=== PATIENT | female | born 1980 | race Caucasian/White ===

== ENCOUNTER 2021-01-24 11:16 | Inpatient (IN) | payer MEDICARE, MEDICAID ==
[~2021-01-24] VITALS: Ht 167.6 cm; Wt 51.4 kg
[~2021-01-24 11:16] MED LIST: BENZ1TAB10 PO; OLAN10TA3 PO
[2021-01-24 12:15] LABS: BASOPHILS % (AUTO) 0.5 % (0.0-2.0); EOSINOPHILS % (AUTO) 0 % (1.0-6.0); HEMATOCRIT 41.7 % (36-46); HEMOGLOBIN 13.8 g/dL (12.0-16.0); LYMPHOCYTES # (AUTO) 1.2 K/uL (1.0-4.8); LYMPHOCYTES % (AUTO) 10.9 % (22.0-44.0); MEAN CORPUSCULAR HEMOGLOBIN 30.3 pg (26.0-34.0); MEAN CORPUSCULAR HGB CONC 33.2 G/dL (31.0-37.0); MEAN CORPUSCULAR VOLUME 91 fL (80-100); MONOCYTES # (AUTO) 0.5 K/uL (0.1-1.0); MONOCYTES % (AUTO) 4.6 % (2.0-9.0); NEUTROPHILS # (AUTO) 9.3 K/uL (1.8-7.7); PLATELET COUNT (AUTO) 220 K/uL (150-450); RED BLOOD CELL COUNT(AUTO) 4.58 MIL/uL (4.00-5.20); RED CELL DISTRIBUTION WIDTH 12.7 % (11.5-14.5)
[2021-01-24 12:36] LABS: ANION GAP 11 mmol/L (8-16); CALCIUM, TOTAL 9.8 mg/dL (8.8-10.5); CARBON DIOXIDE 28 mmol/L (22-29); CHLORIDE 106 mmol/L (98-107); CREATININE 0.61 mg/dL (0.60-1.30); GLOMERULAR FILTR. RATE CALC > 60 mL/min (>60); GLUCOSE,RANDOM 109 mg/dL (70-110); POTASSIUM 3.9 mmol/L (3.5-5.1); SODIUM SERUM 145 mmol/L (136-145); UREA NITROGEN, BLOOD 4 mg/dL (7-18)
[2021-01-24 12:42] LABS: ALANINE AMINOTRANSFERASE 14 U/L (12-78); ALBUMIN 3.9 g/dL (3.4-5.0); ALKALINE PHOSPHATASE 54 U/L (46-116); ASPARTATE AMINOTRANSFERASE 14 U/L (15-37); BILIRUBIN,TOTAL 0.4 mg/dL (0.1-1.0); TOTAL PROTEIN, SERUM 7.5 g/dL (6.4-8.2)
[2021-01-24] MEDS ORDERED: LORazepam 2 MG TABLET PO PRN (12:45)
[2021-01-24] MEDS ORDERED: QUEtiapine FUMARATE 100 MG TABLET PO PRN (12:45)
[2021-01-24] MEDS ORDERED: ZOLPIDEM TARTRATE 10 MG TABLET PO PRN (12:45)
[2021-01-24 15:36] LABS: COVID AG,FIA SOURCE NASAL SWAB
[2021-01-24] MEDS ORDERED: OLANZapine 5 MG TABLET PO ONE (15:45)
[2021-01-24 16:04] LABS: AMPHET/METH SCREEN,URINE NEGATIVE (NEGATIVE); BARBITURATE SCREEN, URINE NEGATIVE (NEGATIVE); BENZODIAZEPINES SCREEN,URINE NEGATIVE (NEGATIVE); CANNABINOID SCREEN,URINE POSITIVE (NEGATIVE); COCAINE SCREEN,URINE NEGATIVE (NEGATIVE); METHADONE SCREEN, URINE NEGATIVE (NEGATIVE); OPIATE SCREEN,URINE NEGATIVE (NEGATIVE)
[2021-01-24 16:07] LABS: PHENCYCLIDINE SCREEN,URINE NEGATIVE (NEGATIVE)
[2021-01-24 22:39] VITALS: BP 122/64
[2021-01-24 23:08] VITALS: BP 111/59
[2021-01-24] MEDS ORDERED: INFLUENZA VIRUS VACCINE QVS 2020-21 (6MO+)/PF 60 MCG/0.5 ML SYRINGE IM ONE (23:45)
[2021-01-25 06:01] VITALS: BP 101/62
[2021-01-25 08:26] VITALS: BP 116/66
[2021-01-25] MEDS ORDERED: PETROLATUM,WHITE 28 GM JELLY TP PRN (08:45)
[2021-01-25] MEDS ORDERED: GuaiFENesin/D-METHORPHAN [SUGAR-FREE] 200-20MG/10 ML SYRUP UDCUP PO PRN (08:45)
[2021-01-25] MEDS ORDERED: DOCUSATE SODIUM 100 MG CAPSULE PO PRN (08:45)
[2021-01-25] MEDS ORDERED: CloNIDine HCL 0.1 MG TABLET PO PRN (08:45)
[2021-01-25] MEDS ORDERED: NICOTINE 14 MG/24 HOUR PATCH TD PRN (08:45)
[2021-01-25] MEDS ORDERED: LOPERAMIDE HCL 2 MG CAPSULE PO PRN (08:45)
[2021-01-25] MEDS ORDERED: MAG HYDROX/AL HYDROX/SIMETH ES 30 ML SUSPENSION UDCUP PO PRN (08:45)
[2021-01-25] MEDS ORDERED: ONDANSETRON HCL 4 MG TABLET PO PRN (08:45)
[2021-01-25] MEDS ORDERED: ALBUTEROL SULFATE HFA 90 MCG/PUFF 8 GM INHALER IH PRN (08:45)
[2021-01-25] MEDS ORDERED: ACETAMINOPHEN 325 MG TABLET PO PRN (08:45)
[2021-01-25] MEDS ORDERED: MAGNESIUM HYDROXIDE SUSPENSION 30 ML UDCUP PO PRN (08:45)
[2021-01-25] MEDS ORDERED: IBUPROFEN 400 MG TABLET PO PRN (08:45)
[2021-01-25] MEDS: ESCITALOPRAM OXALATE 10 MG TABLET PO SCH (11:44)
[2021-01-25 16:08] VITALS: BP 114/67
[2021-01-25] MEDS: OLANZapine 7.5 MG TABLET PO SCH (20:29)
[2021-01-26 01:58] VITALS: BP 140/90
[2021-01-26 08:13] VITALS: BP 121/70
[2021-01-26 08:14] LABS: CHOL/HDL RATIO 2.2 (3.9-5.7)
[2021-01-26 08:29] LABS: FREE T4 (FREE THYROXINE) 1.31 ng/dL (0.76-1.46); THYROID STIMULATING HORMONE 0.64 uIU/mL (0.36-3.74)
[2021-01-26] MEDS: ESCITALOPRAM OXALATE 10 MG TABLET PO SCH (09:05)
[2021-01-26 16:06] VITALS: BP 108/64
[2021-01-26] MEDS: OLANZapine 7.5 MG TABLET PO SCH (20:28)
[2021-01-27 02:54] VITALS: BP 140/80
[2021-01-27 08:37] VITALS: BP 111/71
[2021-01-27] MEDS: ESCITALOPRAM OXALATE 10 MG TABLET PO SCH (08:55)
[2021-01-27 16:12] VITALS: BP 102/70
[2021-01-27] MEDS: OLANZapine 7.5 MG TABLET PO SCH (20:21)
[2021-01-28 00:43] VITALS: BP 113/65
[2021-01-28 08:06] VITALS: BP 115/67
[2021-01-28] MEDS: ESCITALOPRAM OXALATE 10 MG TABLET PO SCH (08:42)
[2021-01-28 16:16] VITALS: BP 119/72
[2021-01-28] MEDS: OLANZapine 7.5 MG TABLET PO SCH (20:33)
[2021-01-29 06:11] VITALS: BP 121/86
[2021-01-29 08:16] VITALS: BP 122/84
[2021-01-29] MEDS: ESCITALOPRAM OXALATE 10 MG TABLET PO SCH (08:31)
[2021-01-29 16:07] VITALS: BP 121/81
[2021-01-29] MEDS: OLANZapine 10 MG TABLET PO SCH (20:21)
[2021-01-30 06:15] VITALS: BP 101/62
[2021-01-30 08:49] VITALS: BP 116/65
[2021-01-30 08:52] LABS: COVID AG,FIA SOURCE NASOPHARYNGEAL
[2021-01-30] MEDS: ESCITALOPRAM OXALATE 20 MG TABLET PO SCH (09:03)
[2021-01-30 16:17] VITALS: BP 116/78
[2021-01-30] MEDS: OLANZapine 10 MG TABLET PO SCH (20:32)
[2021-01-31 00:15] VITALS: BP 110/65
[2021-01-31 08:08] VITALS: BP 132/58
[2021-01-31] MEDS: ESCITALOPRAM OXALATE 20 MG TABLET PO SCH (08:24)
[2021-01-31 16:13] VITALS: BP 108/64
[2021-01-31] MEDS: OLANZapine 10 MG TABLET PO SCH (20:36)
[2021-02-01 06:14] VITALS: BP 121/60
[2021-02-01 07:43] LABS: BASOPHILS % (AUTO) 1.2 % (0.0-2.0); EOSINOPHILS % (AUTO) 1.6 % (1.0-6.0); HEMATOCRIT 41.1 % (36-46); HEMOGLOBIN 14.1 g/dL (12.0-16.0); LYMPHOCYTES # (AUTO) 1.8 K/uL (1.0-4.8); LYMPHOCYTES % (AUTO) 39.5 % (22.0-44.0); MEAN CORPUSCULAR HEMOGLOBIN 30.6 pg (26.0-34.0); MEAN CORPUSCULAR HGB CONC 34.3 G/dL (31.0-37.0); MEAN CORPUSCULAR VOLUME 89 fL (80-100); MONOCYTES # (AUTO) 0.3 K/uL (0.1-1.0); MONOCYTES % (AUTO) 7.4 % (2.0-9.0); NEUTROPHILS # (AUTO) 2.3 K/uL (1.8-7.7); NEUTROPHILS % (AUTO) 50.3 % (40.0-70.0); PLATELET COUNT (AUTO) 171 K/uL (150-450); RED CELL DISTRIBUTION WIDTH 12.6 % (11.5-14.5)
[2021-02-01 08:30] VITALS: BP 127/73
[2021-02-01] MEDS: ESCITALOPRAM OXALATE 20 MG TABLET PO SCH (09:17)
[2021-02-01] MEDS: MULTIVITAMINS WITH MINERALS, THERAPEUTIC TABLET PO SCH (09:17)
[2021-02-01] MEDS: CYANOCOBALAMIN 100 MCG TABLET PO SCH (09:18)
[2021-02-01 16:06] VITALS: BP 113/69
[2021-02-01] MEDS: OLANZapine 10 MG TABLET PO SCH (20:33)
[2021-02-02 00:11] VITALS: BP 109/64
[2021-02-02 08:11] VITALS: BP 100/63
[2021-02-02] MEDS: MULTIVITAMINS WITH MINERALS, THERAPEUTIC TABLET PO SCH (08:36)
[2021-02-02] MEDS: ESCITALOPRAM OXALATE 20 MG TABLET PO SCH (08:36)
[2021-02-02] MEDS: CYANOCOBALAMIN 100 MCG TABLET PO SCH (08:36)
[2021-02-02 16:08] VITALS: BP 125/70
[2021-02-02] MEDS: OLANZapine 10 MG TABLET PO SCH (20:35)
[2021-02-03 00:17] VITALS: BP 103/62
[2021-02-03 08:27] VITALS: BP 120/88
[2021-02-03] MEDS: ESCITALOPRAM OXALATE 20 MG TABLET PO SCH (08:35)
[2021-02-03] MEDS: MULTIVITAMINS WITH MINERALS, THERAPEUTIC TABLET PO SCH (08:35)
[2021-02-03] MEDS: CYANOCOBALAMIN 100 MCG TABLET PO SCH (08:35)
[2021-02-03 16:06] VITALS: BP 117/70
[2021-02-03] MEDS: OLANZapine 10 MG TABLET PO SCH (20:12)
[2021-02-04 02:50] VITALS: BP 126/77
[2021-02-04 08:09] VITALS: BP 139/88
[2021-02-04] MEDS: MULTIVITAMINS WITH MINERALS, THERAPEUTIC TABLET PO SCH (08:31)
[2021-02-04] MEDS: ESCITALOPRAM OXALATE 20 MG TABLET PO SCH (08:31)
[2021-02-04] MEDS: CYANOCOBALAMIN 100 MCG TABLET PO SCH (08:33)
[2021-02-04 16:02] VITALS: BP 104/58
[2021-02-04] MEDS: OLANZapine 10 MG TABLET PO SCH (21:27)
[2021-02-05 00:02] VITALS: BP 102/74
[2021-02-05] MEDS: CYANOCOBALAMIN 100 MCG TABLET PO SCH (08:09)
[2021-02-05] MEDS: ESCITALOPRAM OXALATE 20 MG TABLET PO SCH (08:09)
[2021-02-05] MEDS: MULTIVITAMINS WITH MINERALS, THERAPEUTIC TABLET PO SCH (08:09)
[2021-02-05 08:10] VITALS: BP 124/78
[2021-02-05 16:04] VITALS: BP 114/80
[2021-02-05] MEDS: OLANZapine 10 MG TABLET PO SCH (20:30)
[2021-02-06 00:40] VITALS: BP 107/54
[2021-02-06 07:50] LABS: COVID AG,FIA SOURCE NASOPHARYNGEAL
[2021-02-06 08:03] VITALS: BP 128/79
[2021-02-06] MEDS: MULTIVITAMINS WITH MINERALS, THERAPEUTIC TABLET PO SCH (08:06)
[2021-02-06] MEDS: CYANOCOBALAMIN 100 MCG TABLET PO SCH (08:06)
[2021-02-06] MEDS: ESCITALOPRAM OXALATE 20 MG TABLET PO SCH (08:07)
[2021-02-06 16:11] VITALS: BP 116/73
[2021-02-06] MEDS: OLANZapine 10 MG TABLET PO SCH (20:05)
[2021-02-07 05:30] VITALS: BP 120/67
[2021-02-07 08:09] VITALS: BP 124/69
[2021-02-07] MEDS: MULTIVITAMINS WITH MINERALS, THERAPEUTIC TABLET PO SCH (09:20)
[2021-02-07] MEDS: ESCITALOPRAM OXALATE 20 MG TABLET PO SCH (09:20)
[2021-02-07] MEDS: CYANOCOBALAMIN 100 MCG TABLET PO SCH (09:20)
[2021-02-07 16:09] VITALS: BP 137/67
[2021-02-07] MEDS: OLANZapine 10 MG TABLET PO SCH (20:25)
[2021-02-08 01:11] VITALS: BP 137/88
[2021-02-08 08:04] VITALS: BP 134/73
[2021-02-08] MEDS: CYANOCOBALAMIN 100 MCG TABLET PO SCH (08:24)
[2021-02-08] MEDS: ESCITALOPRAM OXALATE 20 MG TABLET PO SCH (08:24)
[2021-02-08] MEDS: MULTIVITAMINS WITH MINERALS, THERAPEUTIC TABLET PO SCH (08:24)
[2021-02-08 16:07] VITALS: BP 133/80
[2021-02-08] MEDS: OLANZapine 10 MG TABLET PO SCH (20:28)
[2021-02-09 06:23] VITALS: BP 128/70
[2021-02-09 08:13] VITALS: BP 122/77
[2021-02-09] MEDS: MULTIVITAMINS WITH MINERALS, THERAPEUTIC TABLET PO SCH (08:30)
[2021-02-09] MEDS: CYANOCOBALAMIN 100 MCG TABLET PO SCH (08:30)
[2021-02-09] MEDS: ESCITALOPRAM OXALATE 20 MG TABLET PO SCH (08:30)
[2021-02-09 16:02] VITALS: BP 113/67
[2021-02-09] MEDS: OLANZapine 10 MG TABLET PO SCH (20:31)
[2021-02-10 05:39] VITALS: BP 96/57
[2021-02-10 08:16] VITALS: BP 109/68
[2021-02-10] MEDS: ESCITALOPRAM OXALATE 20 MG TABLET PO SCH (10:28)
[2021-02-10] MEDS: CYANOCOBALAMIN 100 MCG TABLET PO SCH (10:28)
[2021-02-10] MEDS: MULTIVITAMINS WITH MINERALS, THERAPEUTIC TABLET PO SCH (10:28)
[2021-02-10] MEDS ORDERED: OLAN10TA20 PO (11:21)
[2021-02-10] MEDS ORDERED: ESCI20TA87 PO (11:21)
== END 2021-02-10 15:15 | disposition home or self-care (01) | DRG 885 ==
LOC: EMS 11:16 → B2X 16:37
DX: F20.0 Paranoid schizophrenia (principal); R45.851 Suicidal ideations; D72.829 Elevated white blood cell count, unspecified; F10.10 Alcohol abuse, uncomplicated; F12.10 Cannabis abuse, uncomplicated; R45.850 Homicidal ideations; F32.9 Major depressive disorder, single episode, unspecified; F17.210 Nicotine dependence, cigarettes, uncomplicated; Z20.822 Contact with and (suspected) exposure to COVID-19; Z65.3 Problems related to other legal circumstances; Z91.14 Patient's other noncompliance with medication regimen; Z79.899 Other long term (current) drug therapy; Z28.21 Immunization not carried out because of patient refusal; Z88.8 Allergy status to other drugs, medicaments and biological substances
CPT/HCPCS: 84439; 84443; 87426; 99285; G0480

== ENCOUNTER 2022-02-13 09:50 | Inpatient (IN) | payer MEDICARE, MEDICAID ==
[~2022-02-13] VITALS: Ht 170.2 cm; Wt 55.6 kg
[~2022-02-13 09:50] MED LIST changes: -BENZ1TAB10 PO; +ESCI20TA87 PO; +OLAN10 PO; -OLAN10TA3 PO
[2022-02-13 11:58] LABS: COVID AG,FIA SOURCE NASOPHARYNGEAL
[2022-02-13] MEDS ORDERED: LORazepam 2 MG TABLET PO PRN (12:30)
[2022-02-13] MEDS ORDERED: ZOLPIDEM TARTRATE 10 MG TABLET PO PRN (12:30)
[2022-02-13] MEDS ORDERED: FluPHENAZine HCL 5 MG TABLET PO PRN (12:45)
[2022-02-13] MEDS ORDERED: BACITRACIN 0.9 GM PACKET OINTMENT TP ONE (13:15)
[2022-02-13 18:57] VITALS: BP 138/68
[2022-02-13 19:49] VITALS: BP 138/68
[2022-02-14 03:58] VITALS: BP 115/68
[2022-02-14] MEDS ORDERED: PETROLATUM,WHITE 28 GM JELLY TP PRN (08:00)
[2022-02-14] MEDS ORDERED: IBUPROFEN 600 MG TABLET PO PRN (08:00)
[2022-02-14] MEDS ORDERED: LOPERAMIDE HCL 2 MG CAPSULE PO PRN (08:00)
[2022-02-14] MEDS ORDERED: ACETAMINOPHEN 325 MG TABLET PO PRN (08:00)
[2022-02-14] MEDS ORDERED: BENZOCAINE/MENTHOL LOZENGE PO PRN (08:00)
[2022-02-14] MEDS ORDERED: MAGNESIUM HYDROXIDE SUSPENSION 30 ML UDCUP PO PRN (08:00)
[2022-02-14] MEDS ORDERED: DOCUSATE SODIUM 100 MG CAPSULE PO PRN (08:00)
[2022-02-14] MEDS ORDERED: OMEPRAZOLE 20 MG CAPSULE PO PRN (08:00)
[2022-02-14] MEDS ORDERED: ONDANSETRON HCL 4 MG TABLET PO PRN (08:00)
[2022-02-14] MEDS ORDERED: ALBUTEROL SULFATE HFA 90 MCG/PUFF 8 GM INHALER IH PRN (08:00)
[2022-02-14] MEDS ORDERED: CloNIDine HCL 0.1 MG TABLET PO PRN (08:00)
[2022-02-14] MEDS ORDERED: MAG HYDROX/AL HYDROX/SIMETH ES 30 ML SUSPENSION UDCUP PO PRN (08:00)
[2022-02-14] MEDS ORDERED: BACITRACIN 28 GM OINTMENT TP PRN (08:00)
[2022-02-14 08:09] VITALS: BP 126/98
[2022-02-14 16:19] VITALS: BP 117/84
[2022-02-14] MEDS: OLANZapine 10 MG RAPDIS TABLET PO SCH (20:09)
[2022-02-15 08:35] VITALS: BP 106/69
[2022-02-15 16:09] VITALS: BP 107/60
[2022-02-15] MEDS: OLANZapine 10 MG RAPDIS TABLET PO SCH (20:06)
[2022-02-16 06:26] VITALS: BP 131/66
[2022-02-16 08:06] VITALS: BP 108/58
[2022-02-16 16:09] VITALS: BP 122/74
[2022-02-16] MEDS: OLANZapine 10 MG RAPDIS TABLET PO SCH (20:08)
[2022-02-17 08:12] VITALS: BP 128/74
[2022-02-17] MEDS: MULTIVITAMINS WITH MINERALS, THERAPEUTIC TABLET PO SCH (08:14)
[2022-02-17 16:20] VITALS: BP 109/61
[2022-02-17] MEDS: OLANZapine 10 MG RAPDIS TABLET PO SCH (20:35)
[2022-02-18 05:30] VITALS: BP 94/74
[2022-02-18 08:07] VITALS: BP 117/71
[2022-02-18 08:16] LABS: GLUCOMETER DEV NAME(LOC) POC.BV
[2022-02-18] MEDS: MULTIVITAMINS WITH MINERALS, THERAPEUTIC TABLET PO SCH (08:39)
[2022-02-18 16:10] VITALS: BP 108/77
[2022-02-18] MEDS: OLANZapine 10 MG RAPDIS TABLET PO SCH (20:40)
[2022-02-19 03:13] VITALS: BP 109/76
[2022-02-19 08:28] VITALS: BP 129/76
[2022-02-19] MEDS: MULTIVITAMINS WITH MINERALS, THERAPEUTIC TABLET PO SCH (09:26)
[2022-02-19 16:05] VITALS: BP 130/73
[2022-02-19] MEDS: OLANZapine 10 MG RAPDIS TABLET PO SCH (20:34)
[2022-02-20 00:45] VITALS: BP 100/60
[2022-02-20] MEDS: MULTIVITAMINS WITH MINERALS, THERAPEUTIC TABLET PO SCH (08:24)
[2022-02-20 08:25] VITALS: BP 115/74
[2022-02-20 16:18] VITALS: BP 101/66
[2022-02-20] MEDS: OLANZapine 10 MG RAPDIS TABLET PO SCH (20:16)
[2022-02-21 04:01] VITALS: BP 127/82
[2022-02-21 08:14] VITALS: BP 118/80
[2022-02-21] MEDS: MULTIVITAMINS WITH MINERALS, THERAPEUTIC TABLET PO SCH (08:29)
[2022-02-21 16:13] VITALS: BP 110/64
[2022-02-21] MEDS: OLANZapine 10 MG RAPDIS TABLET PO SCH (20:36)
[2022-02-22 08:09] VITALS: BP 118/65
[2022-02-22] MEDS: MULTIVITAMINS WITH MINERALS, THERAPEUTIC TABLET PO SCH (08:34)
[2022-02-22 16:20] VITALS: BP 114/73
[2022-02-22] MEDS: OLANZapine 10 MG RAPDIS TABLET PO SCH (20:29)
[2022-02-23] MEDS: MULTIVITAMINS WITH MINERALS, THERAPEUTIC TABLET PO SCH (08:04)
[2022-02-23 08:32] VITALS: BP 147/64
[2022-02-23 16:14] VITALS: BP 116/63
[2022-02-23] MEDS: OLANZapine 10 MG RAPDIS TABLET PO SCH (20:36)
[2022-02-24 00:52] VITALS: BP 122/78
[2022-02-24] MEDS: MULTIVITAMINS WITH MINERALS, THERAPEUTIC TABLET PO SCH (08:11)
[2022-02-24 09:22] VITALS: BP 116/66
[2022-02-24 16:36] VITALS: BP 115/56
[2022-02-24] MEDS: OLANZapine 10 MG RAPDIS TABLET PO SCH (20:28)
[2022-02-25 04:42] VITALS: BP 124/66
[2022-02-25] MEDS: MULTIVITAMINS WITH MINERALS, THERAPEUTIC TABLET PO SCH (09:00)
[2022-02-25 09:20] VITALS: BP 104/64
[2022-02-25 14:41] LABS: GLUCOMETER DEV NAME(LOC) POC.BV
[2022-02-25 16:10] VITALS: BP 119/71
[2022-02-25] MEDS: OLANZapine 10 MG RAPDIS TABLET PO SCH (20:40)
[2022-02-26 00:38] VITALS: BP 120/68
[2022-02-26 08:15] VITALS: BP 117/76
[2022-02-26] MEDS: MULTIVITAMINS WITH MINERALS, THERAPEUTIC TABLET PO SCH (08:38)
[2022-02-26 16:12] VITALS: BP 112/69
[2022-02-26] MEDS: OLANZapine 10 MG RAPDIS TABLET PO SCH (20:25)
[2022-02-27 00:33] VITALS: BP 116/68
[2022-02-27 08:03] VITALS: BP 122/62
[2022-02-27] MEDS: MULTIVITAMINS WITH MINERALS, THERAPEUTIC TABLET PO SCH (08:08)
[2022-02-27 17:54] VITALS: BP 103/62
[2022-02-27] MEDS: OLANZapine 10 MG RAPDIS TABLET PO SCH (20:30)
[2022-02-28 06:09] VITALS: BP 109/78
[2022-02-28 08:15] VITALS: BP 108/74
[2022-02-28] MEDS: MULTIVITAMINS WITH MINERALS, THERAPEUTIC TABLET PO SCH (08:41)
[2022-02-28] MEDS ORDERED: OLAN10TA26 PO ×2 (14:48→14:58)
== END 2022-02-28 17:45 | disposition home or self-care (01) | DRG 885 ==
LOC: EMS 09:54 → B2S 13:23 → B2X 13:24
PROVIDERS: ADMIT Psychiatry & Neurology Psychiatry; ATTEND Psychiatry & Neurology Psychiatry
DX: F25.9 Schizoaffective disorder, unspecified (principal); F19.10 Other psychoactive substance abuse, uncomplicated; F41.9 Anxiety disorder, unspecified; K59.00 Constipation, unspecified; Z20.822 Contact with and (suspected) exposure to COVID-19; G47.00 Insomnia, unspecified; Z72.0 Tobacco use; Z91.14 Patient's other noncompliance with medication regimen; Z88.8 Allergy status to other drugs, medicaments and biological substances; Z71.6 Tobacco abuse counseling
CPT/HCPCS: 99285

== ENCOUNTER 2022-07-28 14:15 | Inpatient (IN) | payer OTHER, MEDICAID ==
[~2022-07-28] VITALS: Ht 170.2 cm; Wt 54.1 kg
[~2022-07-28 14:15] MED LIST changes: -ESCI20TA87 PO; -OLAN10 PO; +OLAN10TA26 PO
[2022-07-28] MEDS ORDERED: ZOLPIDEM TARTRATE 10 MG TABLET PO PRN (16:00)
[2022-07-28] MEDS ORDERED: OLANZapine 5 MG RAPDIS TABLET PO PRN (16:00)
[2022-07-28 21:33] LABS: COVID AG,FIA SOURCE NASOPHARYNGEAL
[2022-07-28 22:54] VITALS: BP 127/60
[2022-07-28 23:23] VITALS: BP 127/60
[2022-07-28 23:28] VITALS: BP 127/60
[2022-07-29] MEDS ORDERED: CloNIDine HCL 0.1 MG TABLET PO PRN (06:15)
[2022-07-29] MEDS ORDERED: MAG HYDROX/AL HYDROX/SIMETH ES 30 ML SUSPENSION UDCUP PO PRN (06:15)
[2022-07-29] MEDS ORDERED: ACETAMINOPHEN 325 MG TABLET PO PRN (06:15)
[2022-07-29] MEDS ORDERED: DOCUSATE SODIUM 100 MG CAPSULE PO PRN (06:15)
[2022-07-29] MEDS ORDERED: LOPERAMIDE HCL 2 MG CAPSULE PO PRN (06:15)
[2022-07-29] MEDS ORDERED: GuaiFENesin/D-METHORPHAN [SUGAR-FREE] 200-20MG/10 ML SYRUP UDCUP PO PRN (06:15)
[2022-07-29] MEDS ORDERED: NICOTINE 14 MG/24 HOUR PATCH TD PRN (06:15)
[2022-07-29] MEDS ORDERED: ALBUTEROL SULFATE HFA 90 MCG/PUFF 8 GM INHALER IH PRN (06:15)
[2022-07-29] MEDS ORDERED: MAGNESIUM HYDROXIDE SUSPENSION 30 ML UDCUP PO PRN (06:15)
[2022-07-29] MEDS ORDERED: IBUPROFEN 400 MG TABLET PO PRN (06:15)
[2022-07-29] MEDS ORDERED: ONDANSETRON HCL 4 MG TABLET PO PRN (06:15)
[2022-07-29] MEDS ORDERED: PETROLATUM,WHITE 28 GM JELLY TP PRN (06:15)
[2022-07-29 08:00] VITALS: BP 112/77
[2022-07-29 09:00] VITALS: BP 112/77
[2022-07-29] MEDS: OLANZapine 10 MG TABLET PO SCH ×2 (13:14→20:19)
[2022-07-30] MEDS: MULTIVITAMINS WITH MINERALS, THERAPEUTIC TABLET PO SCH (08:55)
[2022-07-30] MEDS: OLANZapine 10 MG TABLET PO SCH ×2 (08:55→21:31)
[2022-07-30 16:20] VITALS: BP 119/58
[2022-07-30 16:23] VITALS: BP 119/58
[2022-07-30 18:01] VITALS: BP 119/58
[2022-07-31 08:30] VITALS: BP 114/78
[2022-07-31 08:54] VITALS: BP 114/78
[2022-07-31] MEDS: OLANZapine 10 MG TABLET PO SCH ×2 (09:18→20:43)
[2022-07-31] MEDS: MULTIVITAMINS WITH MINERALS, THERAPEUTIC TABLET PO SCH (09:18)
[2022-07-31] MEDS: LORazepam 2 MG TABLET PO PRN (14:13)
[2022-08-01 08:30] VITALS: BP 105/74
[2022-08-01] MEDS: LORazepam 2 MG TABLET PO PRN (08:38)
[2022-08-01] MEDS: MULTIVITAMINS WITH MINERALS, THERAPEUTIC TABLET PO SCH (08:38)
[2022-08-01] MEDS: OLANZapine 10 MG TABLET PO SCH ×2 (08:38→20:12)
[2022-08-02 08:02] VITALS: BP 102/77
[2022-08-02] MEDS: MULTIVITAMINS WITH MINERALS, THERAPEUTIC TABLET PO SCH (08:10)
[2022-08-02] MEDS: OLANZapine 10 MG TABLET PO SCH ×2 (08:10→20:22)
[2022-08-02 16:27] VITALS: BP 118/62
[2022-08-03 08:00] VITALS: BP 111/78
[2022-08-03] MEDS: MULTIVITAMINS WITH MINERALS, THERAPEUTIC TABLET PO SCH (08:05)
[2022-08-03] MEDS: OLANZapine 10 MG TABLET PO SCH ×2 (08:05→20:32)
[2022-08-03 16:00] VITALS: BP 107/64
[2022-08-04 05:46] LABS: COVID AG,FIA SOURCE NASAL SWAB
[2022-08-04] MEDS: MULTIVITAMINS WITH MINERALS, THERAPEUTIC TABLET PO SCH (07:51)
[2022-08-04] MEDS: OLANZapine 10 MG TABLET PO SCH (07:52)
[2022-08-04 08:17] VITALS: BP 115/76
[2022-08-04] MEDS ORDERED: OLAN10 PO (15:52)
== END 2022-08-04 19:08 | disposition left against medical advice (07) | DRG 885 ==
LOC: EMS 14:23 → 3EC 21:47
PROVIDERS: ADMIT Psychiatry & Neurology Child & Adolescent Psychiatry; ATTEND Psychiatry & Neurology Child & Adolescent Psychiatry
DX: F20.0 Paranoid schizophrenia (principal); F41.9 Anxiety disorder, unspecified; Z20.822 Contact with and (suspected) exposure to COVID-19; Z53.29 Procedure and treatment not carried out because of patient's decision for other reasons; G47.00 Insomnia, unspecified; Z88.8 Allergy status to other drugs, medicaments and biological substances; Z79.899 Other long term (current) drug therapy
CPT/HCPCS: 99285; J3535; Z7502; Z7610